=== PATIENT | male | born 1965 | race African-American/Black ===

== ENCOUNTER 2019-11-25 08:06 | Emergency (ER) | payer MEDICARE ==
[~2019-11-25] VITALS: Ht 188 cm; Wt 90.8 kg
[~2019-11-25 08:06] MED LIST: AMLODIPINE PO; FERR-51 PO; GABA600T7 PO; LISI-167 PO; METH10TA2 PO; OMEP-110 PO; OXYC10TA6 PO; OXYC1TAB7 PO; OXYCODONE PO; SUCR1ORA5 PO; TRAZ-137 PO
--- NOTE | 2019-11-25 08:31 | NUR ---
pt resting in bed, FORCIDLY AND AUDIBLY VOMITING UP BILE. PT GIVEN HEATER HOSE FOR WARMTH AND POSITIONED FOR COMFORT. PT IN HOSPITAL GOWN. WILL CONTINUE TO MONITOR.
[2019-11-25] MEDS ORDERED: AMLO-150 PO (08:43)
[2019-11-25] MEDS ORDERED: METH10TA2 PO (08:43)
[2019-11-25] MEDS ORDERED: HYDROmorphone 1 MG/ML, 1ML INJ ONE ×2 (09:20→10:21)
[2019-11-25] MEDS ORDERED: ONDANSETRON 2MG/ML, 2ML ONE (09:20)
[2019-11-25] MEDS ORDERED: HYDROmorphone 1 MG/ML, 1ML INJ IVPush PRN (09:30)
[2019-11-25] MEDS ORDERED: ONDANSETRON 2MG/ML, 2ML IVPush ONE (09:30)
[2019-11-25] MEDS ORDERED: PROMETHAZINE 25 MG/ML, 1ML ONE (09:32)
--- NOTE | 2019-11-25 09:44 | NUR ---
PT MEDICATED FOR PAIN AND NAUSEA. UNABLE TO GET IV, ERP AWARE, OKAY TO GIVE ORDERED MEDS IM. LAB IN NOW ATTEMPTING TO DRAW BLOOD. PT VITALS REMAIN STABLE. WILL CONTINUE TO MONITOR, CALL LIGHT WITHIN REACH.
--- NOTE | 2019-11-25 09:52 | NUR ---
TASK RN: PT REFUSING RADIOLOGY STUDIES UNTIL HIS PAIN IS BETTER. PT WAS MEDICATED 13MIN AGO WITH IM PHENERGAN AND DILAUDID BY PRIMARY RN.
[2019-11-25 10:00] LABS: BASOPHILS # (AUTO) 0.01 x10^3/uL (0-0.1); BASOPHILS % (AUTO) 0 % (0-1); EOSINOPHILS % (AUTO) 0 % (1-7); LYMPHOCYTES # (AUTO) 0.47 x10^3/uL (1-3.4); LYMPHOCYTES % (AUTO) 11 % (22-44); MD NO; MEAN CORPUSCULAR HEMOGLOBIN 28.4 pg (27.5-34.5); MEAN CORPUSCULAR HGB CONC 32.7 g/dL (33.2-36.2); MEAN PLATELET VOLUME 8.3 fL (7.4-10.4); MONOCYTES # (AUTO) 0.12 x10^3/uL (0.2-0.8); MONOCYTES % (AUTO) 3 % (2-9); NEUTROPHILS % (AUTO) 86 % (42-75); PLATELET COUNT 183 x10^3/uL (130-400); RED BLOOD COUNT 4.68 x10^6/uL (4.38-5.82)
[2019-11-25] MEDS ORDERED: HYDROmorphone 2 MG/ML, 1ML IM ONE (10:00)
[2019-11-25] MEDS ORDERED: PROMETHAZINE 25 MG/ML, 1ML IM ONE (10:00)
[2019-11-25] MEDS ORDERED: SODIUM CHLORIDE FLUSH 10ML SYR IVF ONE ×2 (10:00→12:00)
[2019-11-25] MEDS ORDERED: HYDROmorphone 1 MG/ML, 1ML INJ IM ONE (10:00)
[2019-11-25 10:12] LABS: ALANINE AMINOTRANSFERASE 18 U/L (12-78); ALBUMIN 3.9 g/dL (3.4-5.0); ANION GAP 9 mmol/L (5-15); CALCIUM 8.5 mg/dL (8.5-10.1); CHLORIDE 108 mmol/L (98-107); CREATININE 1.07 mg/dL (0.7-1.3)
[2019-11-25 10:14] LABS: ALKALINE PHOSPHATASE 86 U/L (45-117); BILIRUBIN,TOTAL 0.4 mg/dL (0.2-1.0); TOTAL PROTEIN 7.8 g/dL (6.4-8.2)
--- NOTE | 2019-11-25 10:30 | NUR ---
PT MEDICATED FOR PAIN PER EMAR. PT AWARE HE NEEDS TO PROVIDE UA SAMPLE. PT HAS BEEN GIVEN URINAL FOR SAMPLE COLLECTION. PT REMAINS CURLED UP IN BED. WILL CONTINUE TO MONITOR.
--- NOTE | 2019-11-25 11:21 | NUR ---
PT CONTINUES TO REFUSE ORDERED RAD STUDIES. STATED, "I'M HURTING SO BAD". PT DID PROVIDE URINE. URINE WALKED TO LAB. ERP AWARE PT REFUSING RAD STUDIES. PT HAS HAD ALL ORDERED PAIN MEDS, PT DOES NOT APPEAR IN ANY DISTRESS. WILL CONTINUE TO MONITOR.
--- NOTE | 2019-11-25 11:38 | NUR ---
AFTER SPEAKING WITH PT, PT AGREED TO DO RAD STUDY. PT JUST BACK FROM RAD. VSS, SEE CHARTED, WILL CONTINUE TO MONITOR.
[2019-11-25 11:40] LABS: MICROSCOPIC NOT IND
--- NOTE | 2019-11-25 11:40 | NUR ---
RAD CALLED TO SAY PT REFUSED TO SIT UP FOR XRAY. ERP AWARE.
[2019-11-25 11:43] LABS: CULTURE INDICATED? NO
[2019-11-25] MEDS ORDERED: DIPHENHYDRAMINE 50 MG/ML, 1ML ONE (11:53)
[2019-11-25] MEDS ORDERED: HALOPERIDOL 5 MG/ML ONE (11:53)
[2019-11-25] MEDS ORDERED: HALOPERIDOL 5 MG/ML IV ONE (12:00)
[2019-11-25] MEDS ORDERED: SODIUM CHLORIDE 0.9% 1,000ML IVBOLUS ONE (12:00)
[2019-11-25] MEDS ORDERED: DIPHENHYDRAMINE 50 MG/ML, 1ML IV ONE (12:00)
--- NOTE | 2019-11-25 12:30 | NUR ---
IV ATTEMPT X2, BOTH UNSUCCESSFUL AT THIS TIME. THIS RN HAS ASKED ANOTHER RE TO ATTEMPT IV PLACEMENT, IS OCCURRING AT THIS TIME.
--- NOTE | 2019-11-25 13:08 | NUR ---
RICHAR RN:" IV STARTED AND PT MEDICATED ORDERED. PT PUT ON TELEMETRY MONITOR FOR HALDOL.
--- NOTE | 2019-11-25 13:29 | NUR ---
RECEIVED REPORT FROM TALA GARCIA. [facility]
[2019-11-25 13:49] VITALS: BP 148/75
[2019-11-25] MEDS ORDERED: MORPHINE SULFATE 4 MG/ML, 1ML IVPush PRN (14:00)
[2019-11-25] MEDS ORDERED: MORPHINE SULFATE 4 MG/ML, 1ML ONE (14:11)
--- NOTE | 2019-11-25 14:30 | NUR ---
PT STATES NO IMPROVEMENT IN ABDOMINAL PAIN SINCE MEDICATED ON JAN NOTED. ADDITIONAL ORDER FOR MORPHINE AND GIVEN NOTED ON MAR
--- NOTE | 2019-11-25 14:40 | NUR ---
Patient given taxi voucher, discharge instructions and Rx, they have confirmed that they understand the instructions but refused to leave ED, security called & escorted pt to DC desk via WC for comfort.
== END 2019-11-25 14:42 | disposition home or self-care (01) ==
LOC: ED 08:37
DX: R11.2 Nausea with vomiting, unspecified (principal); R10.9 Unspecified abdominal pain; I10 Essential (primary) hypertension; Z87.19 Personal history of other diseases of the digestive system; Z86.718 Personal history of other venous thrombosis and embolism; Z87.39 Personal history of other diseases of the musculoskeletal system and connective tissue
CPT/HCPCS: 36415; 80053; 81003; 83690; 85025; 96372; 96374; 96375; 99284; J1170; J1200; J1630; J2270; J2550; J7030

== ENCOUNTER 2020-02-13 05:54 | Emergency (ER) | payer MEDICARE ==
[~2020-02-13] VITALS: Ht 188 cm; Wt 97.0 kg
[~2020-02-13 05:54] MED LIST changes: +AMLO-150 PO; -TRAZ-137 PO; +TRAZ-175 PO
[2020-02-13 05:58] VITALS: BP 118/82
[2020-02-13] MEDS ORDERED: KETOROLAC 30 MG/1 ML IM ONE (06:30)
[2020-02-13] MEDS ORDERED: DIAZEPAM 5 MG TABLET PO ONE (06:30)
[2020-02-13] MEDS ORDERED: DIAZEPAM 5 MG TABLET ONE (06:37)
[2020-02-13] MEDS ORDERED: KETOROLAC 30 MG/1 ML ONE (06:37)
--- NOTE | 2020-02-13 06:55 | NUR ---
report from Malik Wang RN. pt now back from xr. pt states sensation is not pain, but "tingling adn pins and needles" that happens every 2-3 minutes. no needs expressed. call light within reach. awaiting xr results.
== END 2020-02-13 07:36 | disposition home or self-care (01) ==
LOC: ED 06:35
DX: M54.12 Radiculopathy, cervical region (principal); M25.511 Pain in right shoulder; I10 Essential (primary) hypertension; K21.9 Gastro-esophageal reflux disease without esophagitis; Z90.49 Acquired absence of other specified parts of digestive tract; Z86.718 Personal history of other venous thrombosis and embolism
CPT/HCPCS: 72050; 96372; 99283; J1885